=== PATIENT | female | born 1985 | race Hispanic/Latino ===

== ENCOUNTER → 2017-08-24 14:24 | Outpatient (CLI) | payer OTHER, SELFPAY ==
[2017-08-24 14:51] LABS: Add Manual Diff / Slide Review NO; Basophils Percent Auto 0.3 % (0-2); Eosinophils Percent Auto 0.5 % (2-4); Hematocrit 40.2 % (36-46); Hemoglobin 13.6 g/dL (12.0-16.0); Lymphocytes Percent Auto 19.5 % (25-40); Mean Corpuscular HGB Conc 33.8 % (30-36); Mean Corpuscular Hemoglobin 29.2 PG (26-34); Mean Corpuscular Volume 86.6 fL (80-100); Monocytes Percent Auto 4.9 % (3-14); Neutrophils Absolute Auto 6300 /uL (3000-5900); Neutrophils Percent Auto 74.8 % (50-75); Platelet Count 239 X10^3/uL (150-400); Red Blood Cell Count 4.64 X10^6/uL (4.0-5.2); White Blood Cell Count 8.4 X10^3/uL (4.5-11.0)
[2017-08-24 15:34] LABS: Alanine Aminotransferase 16 IU/L (9-52); Albumin 4.5 g/dL (3.5-5.0); Albumin Globulin Ratio 1.5 (1.0-2.8); Alkaline Phosphatase 57 U/L (38-126); Aspartate Aminotransferase 16 IU/L (14-36); Bilirubin Total 0.6 mg/dL (0.2-1.3); Blood Urea Nitrogen 16 mg/dL (7-17); Calcium 9.6 mg/dL (8.4-10.2); Carbon Dioxide 27 mmol/L (22-32); Chloride 100 mmol/L (98-107); Estimated Glomerular Filt Rate > 60.0 mL/min (>60); Glucose 93 mg/dL (70-100); HEMOLYSIS < 15 (0-50); Potassium 4.4 mmol/L (3.4-5.1); Sodium 138 mmol/L (137-145); Total Protein 7.5 g/dL (6.3-8.2)
[2017-08-24 15:48] LABS: Free T3, Triiodothyronine Free 2.91 pg/mL (2.77-5.27); Free T4, Direct Thyroxine 1.03 ng/dL (0.78-2.19)
== END ==
PROVIDERS: PCP Physician Assistant; Visit Provider Physician Assistant
DX: R53.83 Other fatigue (principal); R10.11 Right upper quadrant pain
CPT/HCPCS: 36415; 80053; 84439; 84443; 84481; 85025

== ENCOUNTER → 2017-09-08 13:45 | Outpatient (CLI) | payer OTHER, SELFPAY ==
--- NOTE | 2017-09-08 13:46 | DI.US.S_ITS ---
PROCEDURE: US ABDOMEN COMPLETE INDICATIONS: PAIN TECHNIQUE: Real-time scanning was performed of the abdominal and retroperitoneal organs, with image documentation. COMPARISON: None. FINDINGS: Liver: Liver is normal in size and homogeneous in echotexture. Gallbladder: No gallstones identified. Normal gallbladder wall. No pericholecystic fluid. Negative sonographic Barnett sign. Biliary ducts: Intrahepatic bile ducts are non-dilated. Extrahepatic bile duct caliber measures 3.5 mm. Normal is 6-7 mm or less in diameter, or 10 mm or less post-cholecystectomy. Pancreas: Visualized portions of the pancreas are sonographically normal. Spleen: Spleen is normal in size and homogeneous in echotexture. Kidneys: Kidneys are normal in size and echotexture. Right kidney measures 10.4 cm long; left kidney measures 12 cm long. No hydronephrosis or nephrolithiasis. No solid masses. Aorta: Visualized aorta is normal in caliber at less than 3 cm. Iliacs: Proximal common iliac arteries are normal in caliber at less than 2.5 cm. IVC: Intrahepatic inferior vena cava is patent. Miscellaneous: No free abdominal fluid. IMPRESSION: No source for right upper quadrant pain identified sonographically. Dictated by: Malvin Hanley [facility] Interpreted: Tres Becker MD on 09/08/2017 at 15:36 Approved by: Tres Becker M.D. on 09/08/2017 at 16:33
== END ==
PROVIDERS: PCP Physician Assistant; Visit Provider Physician Assistant
DX: R10.11 Right upper quadrant pain (principal)
CPT/HCPCS: 76700

== ENCOUNTER → 2019-06-10 13:44 | Outpatient (CLI) | payer OTHER, SELFPAY ==
[2019-06-10 20:19] LABS: Urine N gonorrhoeae NOT DETECTED
[2019-06-10 20:23] LABS: Urine Chlamydia NOT DETECTED
== END ==
PROVIDERS: PCP Physician Assistant; Visit Provider Specialist
DX: Z34.01 Encounter for supervision of normal first pregnancy, first trimester (principal)
CPT/HCPCS: 87491; 87591

== ENCOUNTER → 2019-06-10 14:06 | Outpatient (CLI) | payer OTHER, SELFPAY ==
[2019-06-10 14:36] LABS: Appearance Urine UA CLEAR; Bilirubin Urine UA NEGATIVE (NEGATIVE); Color Urine UA YELLOW; Glucose Urine UA NEGATIVE (Negative); Ketones Urine UA TRACE (NEGATIVE); Leukocyte Esterase Urine UA NEGATIVE (NEGATIVE); Nitrite Urine UA NEGATIVE (Negative); Occult Blood Urine UA NEGATIVE (Negative); Protein Urine UA NEGATIVE (Negative); Specific Gravity Urine UA <=1.005 (1.000-1.035); Urobilinogen Urine UA 0.2 E.U./dL (0.2)
[2019-06-10 14:37] LABS: pH Urine UA 5.5 (4.5-8.0)
[2019-06-10 14:51] LABS: Add Manual Diff / Slide Review NO; Basophils Absolute Auto 0 /uL (0-100); Basophils Percent Auto 0.2 % (0-2); Eosinophils Absolute Auto 0 /uL (0-450); Eosinophils Percent Auto 0.6 % (2-4); Hematocrit 40.5 % (36-46); Hemoglobin 13.6 g/dL (12.0-16.0); Lymphocytes Absolute Auto 1700 /uL (1100-4500); Lymphocytes Percent Auto 19.4 % (25-40); Mean Corpuscular HGB Conc 33.7 % (30-36); Mean Corpuscular Hemoglobin 29.4 PG (26-34); Mean Corpuscular Volume 87.3 fL (80-100); Monocytes Absolute Auto 500 /uL (0-900); Monocytes Percent Auto 6.1 % (3-14); Neutrophils Absolute Auto 6300 /uL (1500-7000); Neutrophils Percent Auto 73.7 % (50-75); Platelet Count 246 X10^3/uL (150-400); Red Blood Cell Count 4.64 X10^6/uL (4.0-5.2); Red Cell Distribution Width 12.8 % (11.6-14.8); White Blood Cell Count 8.6 X10^3/uL (4.5-11.0)
[2019-06-10 16:00] LABS: Hepatitis B Surface Antigen NEGATIVE s/c (NEGATIVE); Rubella Antibody IgG 12.1 IU/mL (>15)
[2019-06-10 16:12] LABS: HIV 1 & 2 Ab/Ag 4th Gen Combo NEGATIVE (NEGATIVE); Hep C Virus Ab w/Reflex Quant NEGATIVE s/c (NEGATIVE)
[2019-06-11 03:49] LABS: RPR Screen Non Reactive (Non Reactive)
[2019-06-11 07:28] LABS: Varicella IgG Antibody 2576 index (Immune >165)
== END ==
PROVIDERS: PCP Physician Assistant; Referring Provider Specialist; Visit Provider Specialist
DX: Z34.01 Encounter for supervision of normal first pregnancy, first trimester (principal)
CPT/HCPCS: 36415; 80055; 81003; 86787; 86803; 86850; 86900; 86901; 87086; 87389; 87491; 87591

== ENCOUNTER → 2019-10-21 09:57 | Outpatient (CLI) | payer OTHER, SELFPAY ==
[2019-10-21 12:03] LABS: Hematocrit 37.2 % (36-46); Hemoglobin 12.5 g/dL (12.0-16.0)
[2019-10-21 12:13] LABS: GTT (PREG) 1 Hour PP 50gm Dose 102 mg/dL (76-139)
== END ==
PROVIDERS: PCP Physician Assistant; Referring Provider Specialist; Visit Provider Specialist
DX: Z34.02 Encounter for supervision of normal first pregnancy, second trimester (principal); Z3A.26 26 weeks gestation of pregnancy
CPT/HCPCS: 36415; 82950; 85014; 85018

== ENCOUNTER → 2019-11-30 15:28 | Outpatient (CLI) | payer OTHER, SELFPAY ==
[2019-12-02 10:25] LABS: COVID19 Sendout Detected (Not Detect)
== END ==
PROVIDERS: PCP Specialist; Visit Provider Student in an Organized Health Care Education/Training Program
DX: Z11.59 Encounter for screening for other viral diseases (principal)
CPT/HCPCS: 87635

== ENCOUNTER → 2019-12-23 16:59 | Outpatient (CLI) | payer OTHER, SELFPAY ==
[2019-12-24 14:24] LABS: Strep Grp B PCR NEG for Grp B Strep
== END ==
PROVIDERS: Visit Provider Specialist
DX: Z34.03 Encounter for supervision of normal first pregnancy, third trimester (principal); Z3A.36 36 weeks gestation of pregnancy
CPT/HCPCS: 87653

== ENCOUNTER 2020-01-10 12:50 | Outpatient (CLI) | payer OTHER, SELFPAY ==
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
== END 2020-01-10 14:05 | disposition home or self-care (01) ==
LOC: LABOR 13:34 → OB 01-13 10:35
PROVIDERS: Referring Provider Specialist; Visit Provider Specialist
DX: Z34.03 Encounter for supervision of normal first pregnancy, third trimester (principal); Z3A.38 38 weeks gestation of pregnancy
CPT/HCPCS: 59025; G0378; G0379

== ENCOUNTER 2020-01-21 22:51 | Inpatient (IN) | payer OTHER, SELFPAY ==
[2020-01-22] MEDS: miSOPROStoL 25 MCG TABLET VAG ×2 (00:05→04:19)
[2020-01-22 00:06] LABS: Add Manual Diff / Slide Review NO; Basophils Absolute Auto 100 /uL (0-100); Basophils Percent Auto 0.7 % (0-2); Eosinophils Absolute Auto 100 /uL (0-450); Eosinophils Percent Auto 1.2 % (2-4); Hematocrit 36.6 % (36-46); Hemoglobin 12.2 g/dL (12.0-16.0); Lymphocytes Absolute Auto 1800 /uL (1100-4500); Lymphocytes Percent Auto 20.1 % (25-40); Mean Corpuscular HGB Conc 33.2 % (30-36); Mean Corpuscular Hemoglobin 28.8 PG (26-34); Mean Corpuscular Volume 86.8 fL (80-100); Monocytes Absolute Auto 900 /uL (0-900); Monocytes Percent Auto 9.6 % (3-14); Neutrophils Absolute Auto 6200 /uL (1500-7000); Neutrophils Percent Auto 68.4 % (50-75); Platelet Count 156 X10^3/uL (150-400); Red Blood Cell Count 4.22 X10^6/uL (4.0-5.2); Red Cell Distribution Width 13.8 % (11.6-14.8)
[2020-01-22 00:13] VITALS: BP 117/75
[2020-01-22] MEDS: ZOLPIDEM 5 MG TABLET PO (00:15)
[2020-01-22 00:28] LABS: COVID19 -Nasal RAPID Negative (Negative)
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
[2020-01-22] MEDS: OXYTOCIN PREMIX 30 UNIT/500 ML PLAST..BAG IV (08:25)
[2020-01-22] MEDS: LACTATED RINGERS 1,000 ML 100 ML IV ×3 (08:25→20:26)
[2020-01-22] MEDS: ONDANSETRON 4 MG/2 ML INJ IV (20:24)
[2020-01-23] VITALS (7 sets, daily range): BP systolic 92–106; BP diastolic 48–68; PULSE 68–89; RESP 8–13; TEMP 36.8; O2SAT 95–99
[2020-01-23] MEDS: FENT 2MCG/ML BUPIV 0.125% EPI 200 MCG/100 ML PLAST..BAG 12 MCG EPIDURAL (00:08)
[2020-01-23] MEDS: ONDANSETRON 4 MG/2 ML INJ IV ×3 (01:36→09:47)
--- NOTE | 2020-01-23 02:20 | PM.OBPNLAB ---
Date/Time Date Patient Seen: 01/23/20 Time Patient Seen: 02:21 Pain Control Pain control: epidural (Poor pain control) Pelvic Exam Dilation (cm): 7 Effacement (%): 80 station: -2 Amniotic membrane status: Ruptured Contractions Contractions on admission: regular Monitor mode: External Contraction frequency (min): 3 Contraction duration (min): 1 Contraction pattern: Regular Contraction intensity: Strong/Firm Status status: Category l Heart Rate Baseline: 140 Monitor Accelerations: Present Monitor Decelerations: Absent Monitor Variability: Moderate Assessment and Plan Plan: Comments: Patient with minimal cervical change and no descent despite what appeared to be adequate contractions. Patient unable to get good pain control with replacement of epidural. Will proceed with for 1st stage arrest
[2020-01-23] MEDS: CITRIC ACID/SODIUM CITRATE 15 ML SOLUTION 30 ML PO (02:28)
[2020-01-23] MEDS: fentaNYL 100 MCG/2 ML INJ IV (02:32)
--- NOTE | 2020-01-23 03:33 | SUR.OPER ---
Supine on Padded OR bed, head on pillow, safety belt at thigh, arms secured on padded arm boards at <90 degrees abduction. Bump under right buttock. Legs uncrossed with pillow under knees, gel pad to heels, tape over blanket to lower legs.
--- NOTE | 2020-01-23 03:38 | SUR.OPER ---
FHT 134 LIAVE MALE BORN AT 0324
--- NOTE | 2020-01-23 03:58 | PM.PREOP ---
Pre-operative Note COVID-19 COVID-19 status: Negative Result date/Date tested (Pos, Neg/Pending): 01/21/20 Interval Note History & Physical reviewed/Exam performed by Physician: Yes Changes to H&P: Yes H&P completed within 30 days and has changed as indicated here:: 1st stage arrest
--- NOTE | 2020-01-23 03:58 | PM.OP.1 ---
Operative Date/Time/Diagnoses Date of procedure: 01/23/20 Time of procedure: 03:58 Pre-op diagnosis: 40 week gestation, 1st stage arrest Post-op diagnosis: same Procedure & Clinicians Procedure: Primary low-transverse section Same procedure as scheduled: Yes Indications: 1st stage arrest in labor Surgeon: Debra Wagner Liquid Sugar Melter: Perez Sheppard Click Yes if Unassisted: Yes Anesthesia Type: Spinal Operative Notes Findings: Normal tubes, ovaries, uterus, viable male weighing 9 lb 9 oz with Apgars of 9 and 9 Closure Type: primary Specimen(s): none sent Applied: catheter (Hernandez) Estimated Blood Loss (mL): 500 Blood products transfused: none Procedure in detail: The patient was brought to the operating room where she underwent a spinal for anesthesia. She was placed in a supine position with a left lateral tilt. A Hrenandez catheter was in place. Pulsatile stockings were placed and functional throughout the case. 2 g of Ancef were given IV prior to the incision. Warming was in place. The patient was prepped and draped in usual sterile fashion. A low transverse incision was made with a scalpel and the incision was carried down to the fascial layer which was incised transversely with scissors. The midline attachments are superiorly and inferiorly. Some bleeding was controlled Bovie. The rectus muscles were in the midline and the peritoneal incision was made with no damage to internal structures. The peritoneum was incised and superiorly and inferiorly. Bladder blade was placed and a bladder flap was developed and the bladder held away from the lower uterine segment. An incision was made in the uterus with the scalpel and the incision was extended with stretching. The head was elevated out of the abdomen and with fundal pressure the baby was delivered. The was bulb suctioned for clear fluid and handed off to the warmer. Cord blood was collected. The placenta delivered spontaneously with traction. The uterus was cleaned with clean laps. The uterine incision was closed in 2 layers of 0 chromic suture the first a running locking layer the second an imbricating layer. The bladder peritoneum was repaired with 2-0 Vicryl suture. The gutters were cleaned of any remaining fluids and ovaries and tubes were observed to be normal. Adequate hemostasis was noted. The perineum was closed with 2-0 Vicryl suture. The fascia layer was closed with 0 Vicryl suture with 2 stitches. The incision was irrigated and adequate hemostasis noted. The incision was closed with interrupted 3-0 Vicryl sutures and then a subcuticular stitch of 4-0 Vicryl suture. Steri-Strips were placed. The uterus was massaged to remove any clots. The patient went to recovery room in good condition. Counts of instruments and sponges were correct. Dr. Sheppard was present throughout the case to assist with retraction, fundal pressure to deliver the infant, and suturing half the fascia. Complications: none Post-operative Condition: stable Disposition: other ( Center) Plan for aftercare: Routine post section
--- NOTE | 2020-01-23 04:24 | SUR.PHASEI ---
0358 arrived to PACU awake and oriented, denied pain/nausea. See worksheets. Did patient education regarding fundus, bleeding, hormones 0418 sips of water given approx 0410, c/o nausea. Quease-ease and zofran given; 0425 Nausea level improving.
--- NOTE | 2020-01-23 04:46 | SUR.PHASEI ---
0436 transferred to center. Nausea improved, but not resolved. No emesis or wretching. Unable to view BC orders as nurse transferred them. To BC 4, bed remains elevated per request of the RN. SCD's on, ccall light given, dressing, fundus, and pad checked by BC RN. Dad and baby in the room. No further questions from staff or patient/family.
[2020-01-23] MEDS: LACTATED RINGERS 1,000 ML 100 ML IV ×2 (05:06→14:29)
[2020-01-23] MEDS: METOCLOPRAMIDE 10 MG/2 ML INJ IV (06:30)
[2020-01-23] MEDS: KETOROLAC 30 MG/ML VIAL IV ×3 (09:41→22:03)
[2020-01-23] MEDS: diphenhydrAMINE 25 MG TABLET PO (22:11)
[2020-01-24] MEDS: MAG HYDROX/ALUM/SIMETH 30 ML UDC PO (00:31)
[2020-01-24] MEDS: OXYCODONE IR 5 MG TABLET PO ×4 (03:28→17:58)
[2020-01-24] MEDS: IBUPROFEN 600 MG TABLET PO ×3 (03:28→16:59)
[2020-01-24 06:53] LABS: Add Manual Diff / Slide Review NO; Basophils Absolute Auto 100 /uL (0-100); Basophils Percent Auto 0.4 % (0-2); Eosinophils Absolute Auto 100 /uL (0-450); Eosinophils Percent Auto 0.5 % (2-4); Hematocrit 35.7 % (36-46); Hemoglobin 11.6 g/dL (12.0-16.0); Lymphocytes Absolute Auto 1600 /uL (1100-4500); Lymphocytes Percent Auto 10.3 % (25-40); Mean Corpuscular HGB Conc 32.6 % (30-36); Mean Corpuscular Hemoglobin 28.5 PG (26-34); Mean Corpuscular Volume 87.4 fL (80-100); Monocytes Absolute Auto 1200 /uL (0-900); Monocytes Percent Auto 7.4 % (3-14); Neutrophils Absolute Auto 12700 /uL (1500-7000); Neutrophils Percent Auto 81.4 % (50-75); Platelet Count 178 X10^3/uL (150-400); Red Blood Cell Count 4.08 X10^6/uL (4.0-5.2); White Blood Cell Count 15.6 X10^3/uL (4.5-11.0)
[2020-01-24] MEDS: DOCUSATE 250 MG CAPSULE PO (08:30)
--- NOTE | 2020-01-24 17:38 | P.DS_ITS ---
Discharge Providers Provider Date of admission: 01/21/20 22:51 Discharge Date: 01/24/20 Primary care physician: Doctor Rusty MD Consults: 01/21/20 23:08 Consult to Anesthesiology Urgent Comment: Consulting Provider: Anesthesiologist Reason for consultation: Epidural Has provider been notified: No 01/23/20 04:35 Consult to Turbine Inspector Routine Comment: Discharge provider: Debra Wagner MD Summary Hospital Course Date Patient Seen: 01/24/20 Time Patient Seen: 17:39 Procedures: Prostin followed by Pitocin induction, epidural catheter, primary lo w-transverse section Hospital Course: Patient was admitted for induction for LGA infant. Patient had for stage arrest resulting in primary section due to OP position 9 lb 10 oz baby. The patient is doing well. She is urinating and ambulating well. She is passing gas. Her pain is under control. Mild bleeding. Peripartum Data Infant Delivery Method: Section (1st stage arrest) Procedures: Prostin followed by Pitocin induction, epidural catheter, primary low-transverse section complications: none 1: Gender: Male Disposition of : home Discharge Diagnosis (1) Delivery by section: Status: Acute Status at Discharge Cognitive/behavioral status at discharge: oriented Functional status at discharge: independent ambulation Overall status at discharge: patient is back to baseline Time Spent with Patient Time attestation: Total time spent providing and/or coordinating discharge services: Time spent: Less than 30 minutes Objective Labs Result Diagrams: 01/24/20 06:45 Labs: Laboratory Results - last 24 hr 01/24/20 06:45 WBC 15.6 H RBC 4.08 Hgb 11.6 L Hct 35.7 L MCV 87.4 MCH 28.5 MCHC 32.6 RDW 14.0 Plt Count 178 Neut % (Auto) 81.4 H Lymph % (Auto) 10.3 L [place] % (Auto) 7.4 Eos % (Auto) 0.5 L Baso % (Auto) 0.4 Neut # (Auto) 10065 H Lymph # (Auto) 1600 [place] # (Auto) 1200 H Eos # (Auto) 100 Baso # (Auto) 100 Exam Vital Signs (past 8 hours): Oxygen Delivery Method Room Air Narrative Exam Narrative: Abdomen is soft, nontender. Uterus is firm, at U, appropriately tender. Dressing is clean, dry, intact. Mild lochia. Extremities without edema and nontender. Patient is Rh positive, rubella nonimmune, she received Tdap in the 3rd trimester. Discharge Plan Discharge Plan Patient Disposition: Home Discharge orders & Medications Prescriptions: New docusate sodium 250 mg Capsule 250 mg PO DAILY Qty: 20 RF: 0 ibuprofen 600 mg Tablet 600 mg PO Q6HR PRN (Reason: Fever/Mild Pain (1-3)) Qty: 30 RF: 0 oxycodone-acetaminophen 5-325 mg tablet 1 tab PO Q4-6H PRN (Reason: pain) Qty: 30 RF: 0 Continued prenat.vits,harrison,[id number] Tablet 1 tab PO DAILY RF: 0 Follow up/Referrals: Debra Wagner MD [Physician] - (please follow up w/ Dr. Wagner for dressing removal on @ 9:45am 6week appt: Feb 19 @ 10am w/ a 9:45am check in) Diet/Activity/Treatments Diet: Regular Activity: Nothing in vagina or lifting over 20 lb for 6 weeks Skin/Wound/Dressing Care Report to your healthcare provider any signs of infection, such as:: chills, fever and increased pain Dressing: Leave dressing in place until postop appointment Visit Report/Discharge Packet Instructions: DI for Stand Alone Forms: Discharge: Care Discharge Data Primary Care Provider: Miscellaneous,Doctor
[2020-01-24 18:23] VITALS: BP 109/74; PULSE 91; RESP 16; TEMP 36.7
[2020-01-24] MEDS: MEASLES,MUMPS,RUBELLA VACC/PF 0.5 ML VIAL SUBCUT (19:29)
== END 2020-01-24 20:25 | disposition home or self-care (01) | DRG 788 ==
PROVIDERS: Admitting Provider Specialist; Referring Provider Specialist; Visit Provider Specialist
PROC: 10D00Z1 Extraction of Products of Conception, Low, Open Approach (ICD-10-PCS; CPT 59514; principal; 2020-01-23 03:00)
DX: O75.81 Maternal exhaustion complicating labor and delivery (principal); Z3A.40 40 weeks gestation of pregnancy; Z37.0 Single live birth; O62.1 Secondary uterine inertia; O32.8XX0 Maternal care for other malpresentation of fetus, not applicable or unspecified; Z01.812 Encounter for preprocedural laboratory examination; Z20.828 Contact with and (suspected) exposure to other viral communicable diseases
CPT/HCPCS: 01967; 01968; 36415; 59050; 59200; 59510; 85025; 86850; 86900; 86901; 87635; G0379; J1885; J2274; J2405; J2590; J2765; J3010

== ENCOUNTER → 2021-07-31 11:04 | Outpatient (CLI) | payer OTHER, SELFPAY ==
[2021-07-31 11:40] LABS: Add Manual Diff / Slide Review NO; Basophils Absolute Auto 0 /uL (0-100); Basophils Percent Auto 0.4 % (0-2); Eosinophils Absolute Auto 200 /uL (0-450); Eosinophils Percent Auto 2.9 % (2-4); Hematocrit 38.7 % (36-46); Hemoglobin 13.2 g/dL (12.0-16.0); Lymphocytes Absolute Auto 1600 /uL (1100-4500); Lymphocytes Percent Auto 22.8 % (25-40); Mean Corpuscular HGB Conc 34.1 % (30-36); Mean Corpuscular Hemoglobin 28.7 PG (26-34); Mean Corpuscular Volume 84.1 fL (80-100); Monocytes Absolute Auto 500 /uL (0-900); Monocytes Percent Auto 7.5 % (3-14); Neutrophils Absolute Auto 4700 /uL (1500-7000); Neutrophils Percent Auto 66.4 % (50-75); Platelet Count 256 X10^3/uL (150-400); Red Cell Distribution Width 13.6 % (11.6-14.8); White Blood Cell Count 7.1 X10^3/uL (4.5-11.0)
[2021-07-31 11:44] LABS: Appearance Urine UA CLOUDY; Bilirubin Urine UA NEGATIVE (NEGATIVE); Color Urine UA YELLOW; Glucose Urine UA NEGATIVE (Negative); Ketones Urine UA TRACE (NEGATIVE); Leukocyte Esterase Urine UA TRACE (NEGATIVE); Nitrite Urine UA NEGATIVE (Negative); Occult Blood Urine UA 3+ (Negative); Protein Urine UA 1+ (Negative); Specific Gravity Urine UA 1.015 (1.000-1.035); Urobilinogen Urine UA 0.2 E.U./dL (0.2)
[2021-07-31 12:02] LABS: Bacteria Urine Occasional (0-1); RBC Urine 30-100/HPF (0-5/HPF); Squamous Epithelial Cell Urine None Seen (0-5/HPF); WBC Urine 1-5/HPF (0-5/HPF)
[2021-07-31 12:32] LABS: HCG Quantitative /Beta subunit 434.7 mIU/mL
[2021-08-01 07:39] LABS: RPR Screen Non Reactive (Non Reactive); Varicella IgG Antibody 1800 index (Immune >165)
[2021-08-02 04:18] LABS: HIV 1 & 2 Ab/Ag 4th Gen Combo NEGATIVE (NEGATIVE); Hep C Virus Ab w/Reflex Quant NEGATIVE s/c (NEGATIVE); Hepatitis B Surface Antigen NEGATIVE s/c (NEGATIVE); Rubella Antibody IgG 78.8 IU/mL (>15)
== END ==
PROVIDERS: Referring Provider Obstetrics & Gynecology; Visit Provider Obstetrics & Gynecology
DX: O20.9 Hemorrhage in early pregnancy, unspecified (principal)
CPT/HCPCS: 36415; 80055; 81003; 81015; 84702; 86787; 86803; 86850; 86900; 86901; 87077; 87086; 87186; 87389

== ENCOUNTER → 2021-08-02 09:04 | Outpatient (CLI) | payer OTHER, SELFPAY ==
[2021-08-02 10:19] LABS: HCG Quantitative /Beta subunit 70.4 mIU/mL
== END ==
PROVIDERS: Referring Provider Obstetrics & Gynecology; Visit Provider Obstetrics & Gynecology
DX: O20.9 Hemorrhage in early pregnancy, unspecified (principal)
CPT/HCPCS: 36415; 84702

== ENCOUNTER → 2022-01-03 08:58 | Outpatient (CLI) | payer OTHER, SELFPAY ==
[2022-01-03 10:32] LABS: HCG Quantitative /Beta subunit 10409 mIU/mL
== END ==
PROVIDERS: Referring Provider Obstetrics & Gynecology; Visit Provider Obstetrics & Gynecology
DX: N91.2 Amenorrhea, unspecified (principal)
CPT/HCPCS: 36415; 84702

== ENCOUNTER → 2022-01-05 09:05 | Outpatient (CLI) | payer OTHER, SELFPAY ==
[2022-01-05 14:09] LABS: HCG Quantitative /Beta subunit 15524 mIU/mL
== END ==
PROVIDERS: Referring Provider Obstetrics & Gynecology; Visit Provider Obstetrics & Gynecology
DX: N91.2 Amenorrhea, unspecified (principal)
CPT/HCPCS: 36415; 84702

== ENCOUNTER → 2022-02-09 14:35 | Outpatient (CLI) | payer OTHER, SELFPAY ==
[2022-02-09 20:24] LABS: Urine N gonorrhoeae NOT DETECTED
[2022-02-09 20:30] LABS: Urine Chlamydia NOT DETECTED
== END ==
PROVIDERS: Visit Provider Obstetrics & Gynecology
DX: Z34.81 Encounter for supervision of other normal pregnancy, first trimester (principal); Z3A.10 10 weeks gestation of pregnancy
CPT/HCPCS: 87491; 87591

== ENCOUNTER → 2022-02-09 15:20 | Outpatient (CLI) | payer OTHER, SELFPAY ==
[2022-02-09 16:33] LABS: Add Manual Diff / Slide Review NO; Basophils Absolute Auto 0 /uL (0-100); Basophils Percent Auto 0.3 % (0-2); Eosinophils Absolute Auto 100 /uL (0-450); Eosinophils Percent Auto 1.8 % (2-4); Hematocrit 38.2 % (36-46); Hemoglobin 12.7 g/dL (12.0-16.0); Lymphocytes Absolute Auto 1700 /uL (1100-4500); Lymphocytes Percent Auto 23.8 % (25-40); Mean Corpuscular HGB Conc 33.3 % (30-36); Mean Corpuscular Hemoglobin 28.4 PG (26-34); Mean Corpuscular Volume 85.3 fL (80-100); Monocytes Absolute Auto 500 /uL (0-900); Monocytes Percent Auto 6.5 % (3-14); Neutrophils Absolute Auto 4900 /uL (1500-7000); Neutrophils Percent Auto 67.6 % (50-75); Platelet Count 220 X10^3/uL (150-400); Red Blood Cell Count 4.48 X10^6/uL (4.0-5.2); Red Cell Distribution Width 12.7 % (11.6-14.8); White Blood Cell Count 7.2 X10^3/uL (4.5-11.0)
== END ==
PROVIDERS: Referring Provider Obstetrics & Gynecology; Visit Provider Obstetrics & Gynecology
DX: Z34.81 Encounter for supervision of other normal pregnancy, first trimester (principal); Z3A.10 10 weeks gestation of pregnancy
CPT/HCPCS: 36415; 85025; 86850; 86900; 86901; 87491; 87591

== ENCOUNTER → 2022-03-21 09:38 | Outpatient (CLI) | payer OTHER, SELFPAY ==
[2022-03-24 20:19] LABS: AFP Value 25.2 ng/mL (.); Gest Age on Col Date 16.4 weeks (.); Insulin Dep Diabetes No (.); OSBR Risk 1IN 10000 (.); Results Report (.); Test Results *Screen Negative* (.)
== END ==
PROVIDERS: Referring Provider Obstetrics & Gynecology; Visit Provider Obstetrics & Gynecology
DX: Z34.92 Encounter for supervision of normal pregnancy, unspecified, second trimester (principal)
CPT/HCPCS: 36415; 82105

== ENCOUNTER → 2022-04-15 08:46 | Outpatient (CLI) | payer OTHER, SELFPAY ==
--- NOTE | 2022-04-15 08:47 | DI.US.S_ITS ---
PROCEDURE: US OB >= 14 WEEKS FETUS INDICATIONS: ANATOMY SCAN OUTSIDE/PRIOR DATING DATA: Last menstrual period (LMP): 11/26/2021 LMP-based estimated date of delivery (SIDDHARTH): 09/02/2022. TECHNIQUE: Real-time scanning was performed of the fetus, with image documentation and biometric measurements. Endovaginal scanning: Not performed COMPARISON: None. FINDINGS: General: A single living intrauterine gestation is present. Presentation: Vertex. Placenta: Placental position is anterior , without previa. Amniotic fluid index: 16.2 cm, normal range is 5-24 cm. Single deepest vertical pocket is 4.5 cm. heart rate: 155 beats per minute. Maternal cervical canal: 4.4 cm long. Normal lower limit is 2.5 cm. biometrics: Biparietal diameter: 4.7 cm Head circumference: 17.5 cm Abdominal circumference: 14.8 cm Femur length: 3.4 cm Clinically estimated gestational age: 20 weeks 0 days. Composite gestational age from present scan: 20 weeks 2 days. Estimated weight and percentile: 347 g, 65th percentile Anatomic survey: Neuro: Ventricles are non-dilated at less than 10 mm. Cisterna magna is normal at 3-11 mm. Cerebellum is normal in size and morphology. Nuchal skin fold: Normal at less than 6 mm between 14-21 weeks gestational age. Face: Nose and lips, facial profile are normal. Spine: No evidence for spina bifida. Heart: 4-chambered heart is present, with normal ventricular outflow tracts. Diaphragm: Diaphragm is intact. Stomach: Left-sided stomach is present. Kidneys: No hydronephrosis. Normal is less than 5 mm in 2nd trimester, less than 7 mm in 3rd trimester. Cord: 3-vessel cord has orthotopic insertion. Bladder: Normal in size. Extremities: All 4 extremities identified. IMPRESSION: Single living intrauterine gestation. Size concordant with dates. Normal BONNY and normal anatomic survey. Dictated by: Rich Medina M.D. on 04/15/2022 at 14:51 Approved by: Rich Medina M.D. on 04/15/2022 at 14:52
== END ==
PROVIDERS: Referring Provider Obstetrics & Gynecology; Visit Provider Obstetrics & Gynecology
DX: Z34.92 Encounter for supervision of normal pregnancy, unspecified, second trimester (principal); Z3A.20 20 weeks gestation of pregnancy
CPT/HCPCS: 76811

== ENCOUNTER → 2022-05-27 08:59 | Outpatient (CLI) | payer OTHER, SELFPAY ==
[2022-05-27 11:28] LABS: Hematocrit 33.8 % (36-46); Hemoglobin 11.6 g/dL (12.0-16.0)
[2022-05-27 12:02] LABS: GTT (PREG) 1 Hour PP 50gm Dose 130 mg/dL (76-139)
== END ==
PROVIDERS: Referring Provider Obstetrics & Gynecology; Visit Provider Obstetrics & Gynecology
DX: Z34.82 Encounter for supervision of other normal pregnancy, second trimester (principal); Z3A.26 26 weeks gestation of pregnancy
CPT/HCPCS: 36415; 82950; 85014; 85018

== ENCOUNTER → 2022-08-05 09:45 | Outpatient (CLI) | payer OTHER, SELFPAY | PROVIDERS: Visit Provider Physician Assistant | DX: J02.9 Acute pharyngitis, unspecified (principal) | CPT/HCPCS: 87070 ==

== ENCOUNTER → 2022-08-08 16:27 | Outpatient (CLI) | payer OTHER, SELFPAY ==
[2022-08-09 14:03] LABS: Strep Grp B PCR NEG for Grp B Strep
== END ==
PROVIDERS: Visit Provider Obstetrics & Gynecology
DX: Z34.83 Encounter for supervision of other normal pregnancy, third trimester (principal); Z3A.36 36 weeks gestation of pregnancy
CPT/HCPCS: 87653

== ENCOUNTER 2022-08-22 09:28 | Outpatient (CLI) | payer OTHER, SELFPAY ==
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
== END 2022-08-22 11:15 | disposition home or self-care (01) ==
LOC: LABOR 09:44 → OB 08-25 07:40
PROVIDERS: Referring Provider Obstetrics & Gynecology; Visit Provider Obstetrics & Gynecology
DX: O47.1 False labor at or after 37 completed weeks of gestation (principal); Z3A.38 38 weeks gestation of pregnancy
CPT/HCPCS: 59025; 59050; G0378; G0379

== ENCOUNTER 2022-08-29 05:50 | Inpatient (IN) | payer OTHER, SELFPAY ==
[2022-08-29 06:36] VITALS: BP 120/67
[2022-08-29] MEDS: LACTATED RINGERS 1,000 ML 999 ML IV (06:40)
[2022-08-29 06:54] LABS: Add Manual Diff / Slide Review NO; Basophils Absolute Auto 0 /uL (0-100); Basophils Percent Auto 0.5 % (0-2); Eosinophils Absolute Auto 100 /uL (0-450); Eosinophils Percent Auto 1.4 % (2-4); Hematocrit 35.7 % (36-46); Lymphocytes Absolute Auto 1700 /uL (1100-4500); Lymphocytes Percent Auto 19.1 % (25-40); Mean Corpuscular HGB Conc 33.5 % (30-36); Mean Corpuscular Hemoglobin 28.2 PG (26-34); Mean Corpuscular Volume 84.1 fL (80-100); Monocytes Absolute Auto 700 /uL (0-900); Monocytes Percent Auto 7.8 % (3-14); Neutrophils Absolute Auto 6400 /uL (1500-7000); Neutrophils Percent Auto 71.2 % (50-75); Platelet Count 145 X10^3/uL (150-400); Red Blood Cell Count 4.25 X10^6/uL (4.0-5.2); Red Cell Distribution Width 14.2 % (11.6-14.8)
[2022-08-29] MEDS: CITRIC ACID/SODIUM CITRATE 15 ML SOLUTION 30 ML PO (07:32)
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
[2022-08-29] MEDS: CEFAZOLIN 2 GM/100 ML PREMIX 100 ML IV (07:46)
[2022-08-29] MEDS: ACETAMINOPHEN IV 1,000 MG/100 ML VIAL 400 MG IV (08:07)
--- NOTE | 2022-08-29 08:35 | SUR.OPER ---
CORD BLOOD TUBES X2 & PLACENTA SENT WITH OB RNs. Miguelina Frietas.
--- NOTE | 2022-08-29 08:36 | SUR.OPER ---
BABY GIRL DELIVERED @ 0819. APGARS 8 & 8. Miguelina Freitas.
[2022-08-29 09:08] VITALS: BP 110/76; PULSE 85; RESP 12; TEMP 36.3; O2SAT 100
[2022-08-29 09:13] VITALS: BP 102/59; PULSE 88; RESP 16; O2SAT 100
[2022-08-29 09:18] VITALS: BP 112/59; PULSE 81; RESP 18; TEMP 36.2; O2SAT 97
[2022-08-29 09:23] VITALS: BP 110/74; PULSE 72; RESP 18; O2SAT 100
--- NOTE | 2022-08-29 09:25 | PM.PREOP ---
Pre-operative Note COVID-19 Criteria for continued procedure: Non-surgical alternatives not available or appropriate per current SOC Interval Note History & Physical reviewed/Exam performed by Physician: Yes Changes to H&P: No H&P completed within 30 days and has changed as indicated here:: 08/29/22
--- NOTE | 2022-08-29 09:47 | PM.OBCS.1 ---
Operative Date/Time/Diagnoses Date of procedure: 08/29/22 Time of procedure: 09:47 Pre-op diagnosis: 39+ 3 weeks' gestation Previous section Post-op diagnosis: same Procedure & Clinicians Procedure: Repeat low-transverse section Same procedure as scheduled: Yes Indications: 39+ 3 weeks' gestation Previous section Surgeon: Sarah Nielsen Click Yes if Unassisted: No Bumper Operator: Nicki Pena Reason for Bumper Operator: The assistant center manager was necessary to retract upon entry into the abdomen and uterus. She assisted with fundal pressure for delivery of the infant. She assisted with closure with retraction and clipping of suture. She closed the contralateral fascia. Anesthesia Type: Spinal (With Duramorph) Operative Notes Findings: Live female infant in the direct occiput posterior presentation Normal uterus, tubes, and ovaries Closure Type: primary Specimen(s): cord blood and placenta Intraoperative meds administered: Duramorph, Ketorolac and Pitocin Applied: Catheter (To continuous drainage) Estimated Blood Loss (mL): 500 Blood products transfused: none Procedure in detail: The patient was taken to the operating room where she was placed in the seated position. Spinal anesthesia with Duramorph was administered. The patient was then placed in the dorsal supine position with a leftward tilt. She was prepped and draped in the usual sterile fashion. A timeout was performed. After spinal analgesia was found to be adequate, a Pfannenstiel skin incision was made through the previous incision and carried through to the underlying layer fascia. The fascia was nicked in the midline, and the incision extended bilaterally with the Marrero scissors. The superior aspect of the fascial incision was grasped with a [place] clamps, elevated, and the underlying rectus muscles dissected off sharply and bluntly. Attention was then turned to the inferior aspect of this incision which in a similar fashion was grasped with a Roman clamps, elevated, and the underlying rectus muscles dissected off sharply and bluntly. The rectus muscles were in the midline. The peritoneum was identified, grasped between 2 hemostats, and entered sharply with the Metzenbaum scissors. This incision was extended superiorly and inferiorly with good visualization of the bladder. The bladder blade was inserted. The vesicouterine peritoneum was identified, grasped with the pickup, and entered sharply with the Metzenbaum scissors. This incision was extended bilaterally, and the bladder flap was created digitally. The bladder blade was reinserted. The lower uterine segment was incised in a transverse fashion with the scalpel. Upon entering the amniotic sac there was moderate amount of clear amniotic fluid. The 's head was delivered without difficulty. The nose and mouth were suctioned with bulb suction. The remainder of the body delivered without difficulty. The cord was double clamped and cut after 1 minute. The was handed off to waiting RN and RT. The placenta was delivered by expression. The uterus was cleared of all clots and debris. The uterine incision was repaired with #1 chromic in a running interlocking fashion, and a second layer the same suture was used for an imbricating layer. Hemostasis was achieved. The tubes and ovaries were examined and were found to be normal. The gutters were cleared of all clots and debris. The bladder flap was reapproximated using 2-0 Vicryl in a running fashion. The parietal peritoneum was closed using 2-0 Vicryl in a running fashion. The fascia was reapproximated using 0 Vicryl in a running fashion. The subcutaneous layer was copiously irrigated with warm normal saline. 5 simple interrupted sutures of 3-0 Vicryl were placed to reapproximate the subcutaneous layer. The skin was closed with 4-0 Monocryl in a subcuticular fashion. Steri-Strips were placed. An Aquacel dressing was placed. The uterus was expressed of a small amount of old blood. Sponge, lap, and instrument counts were correct x-2. The patient tolerated the procedure well, and was taken to PACU in stable condition. Complications: none [place] Baby 1: Infant Gender: Female Presentation: vertex Position: Occiput Posterior Placental Delivery Description: Expressed Cord Vessel Description: 3 Vessels and Clamped/Cut (After 1 minute) score (1 min): 8 score (5 min): 8 weight: 8 lb 8 oz Post-operative Condition: stable Disposition: PACU Aftercare: routine postop
[2022-08-29] MEDS: ONDANSETRON 4 MG/2 ML INJ IV (10:14)
[2022-08-29] MEDS: OXYCODONE IR 5 MG TABLET PO (10:23)
[2022-08-29] MEDS: diphenhydrAMINE 50 MG/ML VIAL 25 MG IV ×3 (13:31→23:45)
[2022-08-29] MEDS: OXYCODONE IR 5 MG TABLET 10 MG PO ×2 (14:33→19:27)
[2022-08-29] MEDS: KETOROLAC 30 MG/ML VIAL IV ×2 (16:14→22:06)
[2022-08-29] MEDS: ACETAMINOPHEN 325 MG TABLET 650 MG PO ×2 (16:14→22:05)
[2022-08-30] MEDS: KETOROLAC 30 MG/ML VIAL IV (03:29)
[2022-08-30] MEDS: ACETAMINOPHEN 325 MG TABLET 650 MG PO ×4 (03:29→20:51)
[2022-08-30] MEDS: diphenhydrAMINE 50 MG/ML VIAL 25 MG IV (03:31)
[2022-08-30 06:30] LABS: Hematocrit 31.3 % (36-46); Hemoglobin 10.7 g/dL (12.0-16.0)
[2022-08-30] MEDS: IBUPROFEN 600 MG TABLET PO ×3 (09:08→20:51)
[2022-08-30] MEDS: PRENATAL VIT,CALC/IRON/FOLIC 1 TABLET 1 TAB PO (09:09)
[2022-08-30] MEDS: DOCUSATE 100 MG CAPSULE PO (09:09)
[2022-08-30] MEDS: OXYCODONE IR 5 MG TABLET PO ×2 (13:31→17:45)
[2022-08-30 18:17] VITALS: BP 110/70; PULSE 88; RESP 14; TEMP 36.6
--- NOTE | 2022-08-30 18:30 | PM.OBDS.1 ---
Discharge Providers Provider Date of admission: 08/29/22 05:50 Discharge Date: 08/30/22 Consults: 08/29/22 10:04 Consult to Associate Vice President Routine Comment: Discharge provider: Sarah Nielsen MD Summary Hospital Course Date Patient Seen: 08/30/22 Time Patient Seen: 18:30 Diagnoses: 39-,3/7 weeks gestation Previous section Repeat low-transverse section Hospital Course: Patient is a 37-year-old 3 para 2 who presented on August 29, 2022 for a scheduled repeat low-transverse section at 39-,3/7 weeks gestation. She underwent this procedure with spinal anesthesia without complication. Her postoperative course was unremarkable. On postop day # 1 her Hernandez catheter was removed. She was able to void spontaneously. Her pain is well controlled. is going well. Bleeding is tapering. She is ambulating independently. Time Spent with Patient Time attestation: Total time spent providing and/or coordinating discharge services: Objective Labs 08/30/22 06:13 Labs: Laboratory Results - last 24 hr 08/30/22 06:13 Hgb 10.7 L Hct 31.3 L Exam Vital Signs (past 8 hours): - 08/30/22 18:17 Temperature 97.8 F Pulse Rate 88 Respiratory Rate 14 Blood Pressure 110/70 Oxygen Delivery Method Room Air Narrative Exam Narrative: Generally: Patient is sitting up in bed, holding infant, no acute distress Lungs: Clear to auscultation bilaterally Cardiovascular: Regular rate and rhythm Fundus: Firm at U -1 Incision: Clean dry and intact with Aquacel dressing Extremities: Trace edema, negative Homans Discharge Plan Discharge Plan Patient Disposition: Home Provider Discharge Comment: Call with fever, chills, redness or drainage around the incision, or bleeding vaginally more than a pad in an hour Ibuprofen 600 mg every 6 hours as needed Tylenol 650 mg every 6 hours as needed Stool softeners until bowel returns to normal Push oral fluids Discharge orders & Medications Prescriptions: New oxycodone 5 mg tablet 5 mg PO Q4H PRN (Reason: pain) Qty: 20 0RF Continued prenat.vits,harrison,[id number]-[id number] Tablet 1 tab PO DAILY liver extract Tablet 4 tab PO DAILY Follow up/Referrals: Sarah Nielsen MD [Physician] - (Please follow up with Dr Nielsen for an incision check on 09/06/22 at 11am and a 6 week follow up on 10/11/22 at 1:00pm ) Diet/Activity/Treatments Diet: Regular Activity: No heavy lifting, nothing more than the baby for the first 2 weeks Skin/Wound/Dressing Care Report to your healthcare provider any signs of infection, such as:: chills, fever, increased pain, unusual drainage and unusual redness Dressing: Leave dressing in place until 1 week postop visit Visit Report/Discharge Packet Instructions: DI for , DI for Prescription Opioid Use Stand Alone Forms: Patient Portal/API, Stroke Signs & Symptoms
== END 2022-08-30 21:15 | disposition home or self-care (01) | DRG 788 ==
PROVIDERS: Admitting Provider Obstetrics & Gynecology; Referring Provider Obstetrics & Gynecology; Visit Provider Obstetrics & Gynecology
PROC: 10D00Z1 Extraction of Products of Conception, Low, Open Approach (ICD-10-PCS; CPT 59514; principal; 2022-08-29 07:45)
DX: O34.211 Maternal care for low transverse scar from previous cesarean delivery (principal); Z3A.39 39 weeks gestation of pregnancy; Z37.0 Single live birth
CPT/HCPCS: 36415; 59050; 59510; 59514; 85014; 85018; 85025; 86850; 86900; 86901; J0131; J0690; J1200; J1885; J2274; J2405; J2590; J2704

== ENCOUNTER 2022-09-03 08:05 | Emergency (ER) | payer OTHER, SELFPAY ==
[2022-09-03 08:08] VITALS: BP 142/96; PULSE 119; RESP 18; TEMP 36.2; O2SAT 98; BMI 31.1
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
== END 2022-09-03 08:29 | disposition home or self-care (01) ==
PROVIDERS: Emergency Provider Emergency Medicine
DX: K64.8 Other hemorrhoids (principal)
CPT/HCPCS: 99281

== ENCOUNTER → 2022-09-16 13:52 | Outpatient (CLI) | payer OTHER, SELFPAY ==
[2022-09-16 14:44] LABS: Prolactin 136.5 ng/mL (3.0-18.6)
[2022-09-16 14:44] LABS: Prolactin 85.9 ng/mL (3.0-18.6)
== END ==
PROVIDERS: Visit Provider Family Medicine
DX: O92.4 Hypogalactia (principal)
CPT/HCPCS: 84146

== ENCOUNTER → 2023-01-10 11:26 | Outpatient (CLI) | payer OTHER, SELFPAY ==
--- NOTE | 2023-01-10 11:27 | DI.RAD.S_ITS ---
PROCEDURE: XR CHEST 2V INDICATIONS: cough x 2 weeks w/ congestion/wheezing TECHNIQUE: 2 views of the chest were acquired. COMPARISON: None. FINDINGS: Surgical changes and devices: None. Lungs and pleura: Lungs are clear. No pleural effusions or pneumothorax. Mediastinum: Mediastinal contours are normal. Heart size is normal. Bones and chest wall: No suspicious bony abnormalities. Soft tissues appear unremarkable. IMPRESSION: No acute cardiopulmonary abnormality is seen. Approved by: Avinash Arroyo M.D. on 01/10/2023 at 19:04
== END ==
PROVIDERS: Referring Provider Physician Assistant; Visit Provider Physician Assistant
DX: J06.9 Acute upper respiratory infection, unspecified (principal)
CPT/HCPCS: 71046

== ENCOUNTER → 2023-07-18 09:26 | Outpatient (CLI) | payer OTHER, SELFPAY ==
[2023-07-18 10:42] LABS: Add Manual Diff / Slide Review NO; Basophils Absolute Auto 0 /uL (0-100); Basophils Percent Auto 0.2 % (0-2); Eosinophils Absolute Auto 100 /uL (0-450); Eosinophils Percent Auto 2.3 % (2-4); Hematocrit 38.1 % (36-46); Lymphocytes Absolute Auto 1100 /uL (1100-4500); Lymphocytes Percent Auto 18.2 % (25-40); Mean Corpuscular HGB Conc 34.1 % (30-36); Monocytes Absolute Auto 300 /uL (0-900); Monocytes Percent Auto 5.6 % (3-14); Neutrophils Absolute Auto 4500 /uL (1500-7000); Neutrophils Percent Auto 73.7 % (50-75); Platelet Count 192 X10^3/uL (150-400); Red Blood Cell Count 4.49 X10^6/uL (4.0-5.2); White Blood Cell Count 6.2 X10^3/uL (4.5-11.0)
[2023-07-18 12:02] LABS: Hepatitis B Surface Antigen NEGATIVE s/c (NEGATIVE); Rubella Antibody IgG 62.8 IU/mL (>15)
[2023-07-18 12:17] LABS: HIV 1 & 2 Ab/Ag 4th Gen Combo NEGATIVE (NEGATIVE); Hep C Virus Ab w/Reflex Quant NEGATIVE s/c (NEGATIVE)
[2023-07-20 05:14] LABS: RPR Screen Non Reactive (Non Reactive)
[2023-07-20 08:40] LABS: Varicella IgG Antibody 1676 index (Immune >165)
== END ==
LOC: LAB 09:28
PROVIDERS: Referring Provider Obstetrics & Gynecology; Visit Provider Obstetrics & Gynecology
DX: O09.521 Supervision of elderly multigravida, first trimester (principal)
CPT/HCPCS: 36415; 80055; 86787; 86803; 86850; 86900; 86901; 87086; 87389

== ENCOUNTER → 2023-07-31 13:51 | Outpatient (CLI) | payer OTHER, SELFPAY ==
--- NOTE | 2023-07-31 13:54 | DI.US.S_ITS ---
PROCEDURE: US OB <= 14 WEEKS FETUS INDICATIONS: Bleeding OB OUTSIDE/PRIOR DATING DATA: Last menstrual period (LMP): 05/08/2023. LMP-based estimated date of delivery (SIDDHARTH): 02/12/2024. First dating scan (date and location): 07/07/2023. Estimated date of delivery (SIDDHARTH) from first dating scan: 02/12/2024. The calculations are made using the working SIDDHARTH of 02/12/2024. TECHNIQUE: Real-time scanning was performed of the fetus and maternal pelvic organs, with image documentation. Endovaginal scanning was also performed to better visualize the fetus and maternal ovaries. COMPARISON: [facility], US, OB <= 14 WEEKS FETUS, 07/07/2023, 8:42. FINDINGS: Embryo: [place]-rump length 6.1 cm corresponds with a 12 week 4 day gestation Heart rate: 159 beats per minute Maternal organs: . The cervix measures 3.8 cm in length. Nonspecific increased vascularity noted at the internal os. No evidence of subchorionic bleed IMPRESSION: Single live intrauterine corresponds with a 12 week 4 day gestation. No evidence of subchorionic bleed Approved by: Avinash Arroyo M.D. on 07/31/2023 at 17:02
== END ==
PROVIDERS: Referring Provider Obstetrics & Gynecology; Visit Provider Obstetrics & Gynecology
DX: O20.9 Hemorrhage in early pregnancy, unspecified (principal); Z3A.12 12 weeks gestation of pregnancy
CPT/HCPCS: 76801; 76817

== ENCOUNTER → 2023-09-11 15:01 | Outpatient (CLI) | payer OTHER, SELFPAY | PROVIDERS: Referring Provider Obstetrics & Gynecology; Visit Provider Obstetrics & Gynecology | DX: Z34.82 Encounter for supervision of other normal pregnancy, second trimester (principal); Z3A.18 18 weeks gestation of pregnancy | CPT/HCPCS: 36415; 82105 ==

== ENCOUNTER → 2023-09-25 09:14 | Outpatient (CLI) | payer OTHER, SELFPAY ==
--- NOTE | 2023-09-25 09:15 | DI.US.S_ITS ---
PROCEDURE: US OB >= 14 WEEKS FETUS INDICATIONS: 20 week anatomy scan OUTSIDE/PRIOR DATING DATA: Last menstrual period (LMP): 05/08/2023. LMP-based estimated date of delivery (SIDDHARTH): 02/12/2024. First dating scan (date and location): 07/07/2023. Estimated date of delivery (SIDDHARTH) from first dating scan: 02/12/2024. The calculations are made using the clinical SIDDHARTH of 02/12/2024. TECHNIQUE: Real-time scanning was performed of the fetus, with image documentation and biometric measurements. Endovaginal scanning: Not performed COMPARISON: [facility], , OB <= 14 WEEKS FETUS, 07/31/2023, 14:13. [facility], , OB >= 14 WEEKS FETUS, 07/11/2022, 14:30. FINDINGS: General: A single living intrauterine gestation is present. Presentation: Vertex. Placenta: Placental position is posterior, without previa. Amniotic fluid index: 16.3 cm, normal range is 5-24 cm. Single deepest vertical pocket is 4.7 cm. heart rate: 153 beats per minute. Maternal cervical canal: 5.1 cm long. Normal lower limit is 2.5 cm. biometrics: Biparietal diameter: 4.6 cm, 20 weeks 0 days Head circumference: 17.3 cm, 19 weeks 6 days Abdominal circumference: 16.1 cm, 21 weeks 1 day Femur length: 3.3 cm, 20 weeks 2 days Clinically estimated gestational age: 20 weeks 0 days Composite gestational age from present scan: 20 weeks 2 days Estimated weight and percentile: 371 g, 83rd percentile Anatomic survey: Neuro: Ventricles are non-dilated at less than 10 mm. Cisterna magna is normal at 3-11 mm. Cerebellum is normal in size and morphology. Nuchal skin fold: Normal at less than 6 mm between 14-21 weeks gestational age. Face: Nose and lips, facial profile are normal. Spine: No evidence for spina bifida. Heart: 4-chambered heart is present, with normal ventricular outflow tracts. Diaphragm: Diaphragm is intact. Stomach: Left-sided stomach is present. Kidneys: No hydronephrosis. Normal is less than 5 mm in 2nd trimester, less than 7 mm in 3rd trimester. Cord: 3-vessel cord has orthotopic insertion. Bladder: Normal in size. Extremities: All 4 extremities identified. IMPRESSION: 1. Lynn living intrauterine at 20 weeks 2 days based on today's ultrasound. Fetus is in the 83rd percentile for weight. 2. Normal placenta and amniotic fluid. 3. Normal and complete anatomic survey. We strive to produce accurate, complete, and clear reports of imaging services. To assist us in improving patient care, this report was composed using standard report templates and voice recognition software. Therefore, it may contain abnormal punctuation, insertions and/or omissions. Occasional wrong-word or sound-alike substitutions may occur. Though we review the report and make efforts to correct it, we do recommend that the report be read carefully in proper context to recognize any text inaccuracies. Dictated by: Mehul Nicole M.D. on 09/25/2023 at 20:07 Approved by: Mehul Nicole M.D. on 09/25/2023 at 20:14
== END ==
LOC: US 09:15
PROVIDERS: Referring Provider Obstetrics & Gynecology; Visit Provider Obstetrics & Gynecology
DX: Z34.82 Encounter for supervision of other normal pregnancy, second trimester (principal); Z3A.20 20 weeks gestation of pregnancy
CPT/HCPCS: 76811

== ENCOUNTER → 2023-11-03 08:47 | Outpatient (CLI) | payer OTHER, SELFPAY ==
[2023-11-03 10:56] LABS: Hematocrit 35.2 % (36-46); Hemoglobin 12.1 g/dL (12.0-16.0)
[2023-11-03 11:22] LABS: GTT (PREG) 1 Hour PP 50gm Dose 91 mg/dL (76-139)
== END ==
PROVIDERS: Referring Provider Obstetrics & Gynecology; Visit Provider Obstetrics & Gynecology
DX: Z34.82 Encounter for supervision of other normal pregnancy, second trimester (principal); Z3A.26 26 weeks gestation of pregnancy
CPT/HCPCS: 36415; 82950; 85014; 85018

== ENCOUNTER 2023-12-25 07:13 | Inpatient (IN) | payer OTHER, SELFPAY ==
--- NOTE | 2023-12-25 07:28 | DI.US.S_ITS ---
PROCEDURE: US OB LIMITED INDICATIONS: 33 wk , bright red bleeding OUTSIDE/PRIOR DATING DATA: Last menstrual period (LMP): 05/08/2023. LMP-based estimated date of delivery (SIDDHARTH): 02/12/2024. First dating scan (date and location): 07/07/2023. Estimated date of delivery (SIDDHARTH) from first dating scan: 02/12/2024. TECHNIQUE: Real-time scanning was performed of the fetus, with image documentation. Endovaginal scanning: Performed COMPARISON: [facility], OB >= 14 WEEKS FETUS, 09/25/2023, 9:27. [facility], OB <= 14 WEEKS FETUS, 07/31/2023, 14:13. [facility] OB <= 14 WEEKS FETUS, 07/07/2023, 8:42. FINDINGS: A single living intrauterine gestation is present. Presentation: Vertex. Placenta: Placental position is posterior fundal, without previa. 2.1 cm, which is borderline abnormal (please note that per documentation, the cervical os was dilated at 3 cm at the time of this measurement) Amniotic fluid index: 11.3 cm, normal range is 5-24 cm. Single deepest vertical pocket is 7.1 cm. heart rate: 127 beats per minute. Maternal cervical canal: Dilated at 3 cm Estimated gestational age from initial scan: 33 weeks and 0 days. IMPRESSION: 1. Single live intrauterine gestation with an estimated gestational age of 33 weeks and heart rate of 127 beats per minute. 2. Interval reduction in cervical length to 2.1 cm and cervical os dilatation up to 3 cm, which may be indicative of a delivery in progress. Dictated by: Quincy Mora M.D. on 12/25/2023 at 8:32 Approved by: Quincy Mora M.D. on 12/25/2023 at 8:41
[2023-12-25] MEDS: LACTATED RINGERS 1,000 ML 100 ML IV ×3 (08:00→11:53)
[2023-12-25] MEDS: MAGNESIUM SULFATE 4 GM/100 ML PIGGYBACK IV (08:16)
[2023-12-25] MEDS: BETAMETHASONE 30 MG/5 ML MDV 12 MG IM (08:16)
[2023-12-25 08:45] LABS: Add Manual Diff / Slide Review NO; Basophils Absolute Auto 0 /uL (0-100); Basophils Percent Auto 0.2 % (0-2); Eosinophils Absolute Auto 100 /uL (0-450); Eosinophils Percent Auto 0.9 % (2-4); Hematocrit 38.3 % (36-46); Lymphocytes Absolute Auto 1500 /uL (1100-4500); Lymphocytes Percent Auto 15.5 % (25-40); Mean Corpuscular HGB Conc 33.9 % (30-36); Mean Corpuscular Hemoglobin 28.8 PG (26-34); Monocytes Absolute Auto 600 /uL (0-900); Monocytes Percent Auto 6.4 % (3-14); Neutrophils Absolute Auto 7500 /uL (1500-7000); Platelet Count 143 X10^3/uL (150-400); Red Blood Cell Count 4.51 X10^6/uL (4.0-5.2); Red Cell Distribution Width 13.6 % (11.6-14.8); White Blood Cell Count 9.8 X10^3/uL (4.5-11.0)
[2023-12-25] MEDS: MAGNESIUM SULFATE 20 GM/500 ML IV.SOLN IV (08:48)
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
--- NOTE | 2023-12-25 09:03 | PM.PREOP ---
Pre-operative Note Interval Note History & Physical reviewed/Exam performed by Physician: Yes Changes to H&P: No H&P completed within 30 days and has changed as indicated here:: 12/25/23
[2023-12-25 09:52] VITALS: BP 113/69
[2023-12-25] MEDS: ACETAMINOPHEN IV 1,000 MG/100 ML VIAL 400 MG IV (11:30)
--- NOTE | 2023-12-25 11:36 | SUR.OPER ---
pre incision FHT 129, viable baby born at 1137, clear amniotic fluid
[2023-12-25] MEDS: CEFAZOLIN 2 GM/100 ML PREMIX 100 ML IV (11:45)
[2023-12-25 12:30] VITALS: BP 96/65; PULSE 71; RESP 18; TEMP 36.9; O2SAT 100
[2023-12-25 12:35] VITALS: BP 97/59; PULSE 70; RESP 14; O2SAT 100
[2023-12-25 12:40] VITALS: BP 97/57; PULSE 73; RESP 14; O2SAT 98
[2023-12-25 12:45] VITALS: BP 94/61; PULSE 73; RESP 14; TEMP 36.6; O2SAT 100
--- NOTE | 2023-12-25 12:52 | PM.OBCS.1 ---
Operative Date/Time/Diagnoses Date of procedure: 12/25/23 Time of procedure: 12:52 Pre-op diagnosis: Thirty-three weeks' gestation labor Previous section x2 Post-op diagnosis: same Procedure & Clinicians Procedure: Repeat low-transverse section Scar revision Same procedure as scheduled: Yes Indications: Patient is a 38-year-old 3 para 2 who presented to labor and delivery with labor. Despite magnesium sulfate she had cervical change. Decision was made to proceed with repeat section here[facility] Surgeon: Sarah Nielsen Click Yes if Unassisted: No Post Doctoral Fellow: Marilou Noonan Reason for Post Doctoral Fellow: The assistant surveyor was necessary to retract upon entry into the abdomen and uterus. She assisted with delivery of the with fundal pressure. She assisted with closure with retraction, clipping of suture, and closure of the contralateral fascia. Anesthesia Type: Spinal (With Duramorph) Operative Notes Findings: Live male infant in the BRIANNA presentation Normal uterus, tubes and ovaries Closure Type: primary Specimen(s): cord blood and placenta Intraoperative meds administered: Acetaminophen, Duramorph, Ketorolac and Pitocin Applied: Catheter (To continuous drainage) Estimated Blood Loss (mL): 600 Blood products transfused: none Procedure in detail: The patient was taken to the operating room where she was placed in the seated position. Spinal anesthesia with Duramorph was administered. The patient was then placed in the dorsal supine position with a leftward tilt. She was prepped and draped in the usual sterile fashion. A timeout was performed. After spinal analgesia was found to be adequate, The previous 2 scars were excised in an elliptical fashion. The incision was then carried through to the underlying layer fascia. The fascia was nicked in the midline, and the incision extended bilaterally with the Marrero scissors. The superior aspect of the fascial incision was grasped with a [place] clamps, elevated, and the underlying rectus muscles dissected off sharply and bluntly. Attention was then turned to the inferior aspect of this incision which in a similar fashion was grasped with a [place] clamps, elevated, and the underlying rectus muscles dissected off sharply and bluntly. The rectus muscles were in the midline. The peritoneum was identified, grasped between 2 hemostats, and entered sharply with the Metzenbaum scissors. This incision was extended superiorly and inferiorly with good visualization of the bladder. The bladder blade was inserted. The vesicouterine peritoneum was identified, grasped with the pickup, and entered sharply with the Metzenbaum scissors. This incision was extended bilaterally, and the bladder flap was created digitally. The bladder blade was reinserted. The lower uterine segment was incised in a transverse fashion with the scalpel. Upon entering the amniotic sac there was moderate amount of clear amniotic fluid. The 's head was delivered without difficulty. The nose and mouth were suctioned with bulb suction. The remainder of the body delivered without difficulty. The infant was wrapped in warm blankets. The cord was double clamped and cut after 30 seconds. The infant was handed off to waiting RN, RT and Pediatric team. Pitocin was given in the IVF's. The placenta was delivered by expression. The uterus was cleared of all clots and debris. The uterine incision was repaired with #1 chromic in a running interlocking fashion, and a second layer the same suture was used for an imbricating layer. Hemostasis was achieved. The tubes and ovaries were examined and were found to be normal. The gutters were cleared of all clots and debris. The bladder flap was reapproximated using 2-0 Vicryl in a running fashion. The parietal peritoneum was closed using 2-0 Vicryl in a running fashion. The fascia was reapproximated using 0 Vicryl in a running fashion. The subcutaneous layer was copiously irrigated with warm normal saline. 5 simple interrupted sutures of 3-0 Vicryl were placed to reapproximate the subcutaneous layer. The skin was closed with 4-0 Monocryl in a subcuticular fashion. Steri-Strips were placed. An Aquacel dressing was placed. The uterus was expressed of a small amount of old blood. Sponge, lap, and instrument counts were correct x-2. The patient tolerated the procedure well, and was taken to PACU in stable condition. Complications: none [place] Baby 1: Gender: Male Presentation: vertex Position: Left Occiput Anterior Placental Delivery Description: Expressed Cord Vessel Description: 3 Vessels and Clamped/Cut (after 30 sec) score (1 min): 8 score (5 min): 8 weight: 5 lb 1.4 oz Post-operative Condition: stable Disposition: PACU Aftercare: routine postop
[2023-12-25 14:32] VITALS: TEMP 35.9
[2023-12-25] MEDS: OXYCODONE IR 5 MG TABLET PO ×2 (14:32→15:34)
[2023-12-25] MEDS: LANOLIN OINT 7 GM 1 APPLIC TOP (14:32)
[2023-12-25] MEDS: ONDANSETRON 4 MG/2 ML INJ IV (14:53)
[2023-12-25] MEDS: diphenhydrAMINE 50 MG/ML VIAL 25 MG IV ×2 (15:31→19:57)
[2023-12-25] MEDS: ACETAMINOPHEN 325 MG TABLET 650 MG PO (17:46)
[2023-12-25] MEDS: polyethylene glycoL 3350 17 GM POWD.PACK PO (17:47)
[2023-12-25] MEDS: KETOROLAC 30 MG/ML VIAL IV (18:43)
[2023-12-25] MEDS: OXYCODONE IR 10 MG TABLET PO (19:57)
[2023-12-26] MEDS: KETOROLAC 30 MG/ML VIAL IV (00:32)
[2023-12-26] MEDS: OXYCODONE IR 10 MG TABLET PO (00:32)
[2023-12-26] MEDS: ACETAMINOPHEN 325 MG TABLET 650 MG PO ×2 (03:03→09:17)
[2023-12-26] MEDS: OXYCODONE IR 5 MG TABLET PO (06:08)
[2023-12-26] MEDS: IBUPROFEN 600 MG TABLET PO ×2 (06:11→12:13)
[2023-12-26 06:13] LABS: Add Manual Diff / Slide Review NO; Basophils Absolute Auto 0 /uL (0-100); Basophils Percent Auto 0.1 % (0-2); Eosinophils Absolute Auto 0 /uL (0-450); Hematocrit 36.1 % (36-46); Lymphocytes Absolute Auto 1000 /uL (1100-4500); Lymphocytes Percent Auto 5.6 % (25-40); Mean Corpuscular HGB Conc 33.3 % (30-36); Mean Corpuscular Hemoglobin 28.6 PG (26-34); Mean Corpuscular Volume 85.8 fL (80-100); Monocytes Absolute Auto 1000 /uL (0-900); Monocytes Percent Auto 5.1 % (3-14); Neutrophils Absolute Auto 16800 /uL (1500-7000); Neutrophils Percent Auto 89.2 % (50-75); Platelet Count 156 X10^3/uL (150-400); Red Cell Distribution Width 13.2 % (11.6-14.8); White Blood Cell Count 18.8 X10^3/uL (4.5-11.0)
[2023-12-26] MEDS: DOCUSATE 100 MG CAPSULE PO (09:17)
[2023-12-26] MEDS: polyethylene glycoL 3350 17 GM POWD.PACK PO (09:17)
[2023-12-26] MEDS: PRENATAL VIT,CALC/IRON/FOLIC 1 TABLET 1 TAB PO (09:17)
[2023-12-26 10:20] VITALS: BP 94/61; PULSE 73; RESP 14; TEMP 35.9
--- NOTE | 2023-12-26 12:11 | PM.OBDS.1 ---
Discharge Providers Provider Date of admission: 12/25/23 07:13 Discharge Date: 12/26/23 Consults: 12/25/23 13:04 Consult to Telephone Claims Representative Routine Comment: Discharge provider: Zoila Rose DO Summary Hospital Course Date Patient Seen: 12/26/23 Time Patient Seen: 12:11 Diagnoses: gestation at 33wks labor History of prior section Hospital Course: 38yo at 33+0wks presented in labor. She progressed from 3cm to 4cm over several hours, thus she was counseled and consented for repeat delivery. Her delivery was uncomplicated and productive of a viable male infant with APGARs 8/8. Her baby was transferred to the NICU. Her course was uncomplicated. By post-op day #1, she was ambulating, tolerating regular diet, voiding spontaneously, with minimal lochia. Thus on post-op day #1, she was discharged to home. Peripartum Data Delivery Method: Section Procedures: External monitoring delivery Neuraxial anesthesia complications: none Discharge Diagnosis (1) delivery delivered: Status: Acute (2) labor in third trimester with delivery: Status: Acute Status at Discharge Cognitive/behavioral status at discharge: oriented Functional status at discharge: independent ambulation Overall status at discharge: patient is progressing back to baseline Time Spent with Patient Time attestation: Total time spent providing and/or coordinating discharge services: Time spent: Less than 30 minutes Objective Labs 12/26/23 06:02 Labs: Laboratory Results - last 24 hr 12/26/23 06:02 WBC 18.8 H D RBC 4.20 Hgb 12.0 Hct 36.1 MCV 85.8 MCH 28.6 MCHC 33.3 RDW 13.2 Plt Count 156 Neut % (Auto) 89.2 H Lymph % (Auto) 5.6 L [place] % (Auto) 5.1 Eos % (Auto) 0.0 L Baso % (Auto) 0.1 Neut # (Auto) 60226 H Lymph # (Auto) 1000 L [place] # (Auto) 1000 H Eos # (Auto) 0 Baso # (Auto) 0 Exam Vital Signs (past 8 hours): - 12/26/23 10:20 Temperature 96.6 F L Pulse Rate 73 Respiratory Rate 14 Blood Pressure 94/61 Oxygen Delivery Method Room Air reviewed in OBIX, within normal parameters Const General: cooperative, healthy appearing, comfortable and No acute distress Resp Effort & Inspection: normal respiratory effort GI Inspection: normal to inspection Other: fundus firm and nontender at U-2 Skin General: no rashes or lesions noted Other: low transverse incision covered with Aquacel dressing, no strikethrough noted Neuro General: patient alert and patient awake Extrem General: normal to inspection, no pedal edema and no calf tenderness Psych Mood: congruent mood Affect: normal affect Discharge Plan Discharge Plan Patient Disposition: Home Provider Discharge Comment: Take ibuprofen 800 mg every 8 hours, and acetaminophen 650 mg every 6 hours as needed for pain. Use oxycodone 5 mg every 4 hours as needed for breakthrough pain. Avoid lifting greater than 20 lb for at least 6 weeks. Avoid placing anything in the vagina for 6 weeks. Discharge orders & Medications Prescriptions: New oxycodone 5 mg Tablet 5 mg PO Q4H PRN (Reason: Pain, Moderate (4-6)) Qty: 14 0RF Continued prenat.vits,harrison,[id number] Tablet 1 tab PO DAILY Discontinued RSVPreF3 antigen-AS01E (PF) 120 mcg/0.5 mL suspension for reconstitution 0.5 ml IM ONCE Qty: 1 0RF Follow up/Referrals: Sarah Nielsen MD [Physician] - (Please follow up for your 1 week incision check on monday01/03/24 @9:15am. Check in @9:00am! Also please follow up for your 6 week checkup appointment on 02/01/24 @10:00am! Check in @9:45am!) Diet/Activity/Treatments Diet: Diet as Tolerated Activity: As tolerated Skin/Wound/Dressing Care Report to your healthcare provider any signs of infection, such as:: chills, fever, increased pain, unusual drainage and unusual redness Dressing: You may shower with the Aquacel dressing in place. Visit Report/Discharge Packet Instructions: DI for , DI for Prescription Opioid Use Stand Alone Forms: Discharge: Care, Discharge: [facility], Patient Portal/API
== END 2023-12-26 13:50 | disposition home or self-care (01) | DRG 788 ==
PROVIDERS: Admitting Provider Obstetrics & Gynecology; Referring Provider Obstetrics & Gynecology; Visit Provider Obstetrics & Gynecology
PROC: 10D00Z1 Extraction of Products of Conception, Low, Open Approach (ICD-10-PCS; CPT 59514; principal; 2023-12-25 09:45)
DX: O60.14X0 Preterm labor third trimester with preterm delivery third trimester, not applicable or unspecified (principal); Z3A.33 33 weeks gestation of pregnancy; Z37.0 Single live birth
CPT/HCPCS: 36415; 59050; 59400; 76815; 76817; 85025; 86850; 86900; 86901; G0379; J0134; J0690; J0702; J1100; J1200; J1885; J2274; J2405; J3475

== ENCOUNTER 2024-02-23 09:24 | Emergency (ER) | payer OTHER, SELFPAY ==
[2024-02-23] VITALS (7 sets, daily range): BP systolic 107–124; BP diastolic 67–86; PULSE 72–87; RESP 11–26; TEMP 36.8; O2SAT 97–100; BMI 27.1
--- NOTE | 2024-02-23 09:26 | PC.NURSE ---
Pt in the bathroom when I went to lobby to get her for triage.
--- NOTE | 2024-02-23 09:33 | DI.RAD.S_ITS ---
PROCEDURE: XR CHEST 1V INDICATIONS: chest pain TECHNIQUE: One view of the chest was acquired. COMPARISON: [facility], CR, XR CHEST 2V, 01/10/2023, 12:29. FINDINGS: Surgical changes and devices: None. Lungs and pleura: No dense airspace disease. No pleural effusions Mediastinum: Heart size is normal and unchanged Bones and chest wall: Unremarkable IMPRESSION: Single view radiograph without acute abnormality. Dictated by: Natanael Cline M.D. on 02/23/2024 at 9:54 Approved by: Natanael Cline M.D. on 02/23/2024 at 9:54
[2024-02-23] MEDS: ASPIRIN 81 MG CHEW TAB 324 MG PO (09:37)
--- NOTE | 2024-02-23 09:39 | EKG_ITS ---
[address] [id number] [address], [place] [address] Test Date: 2024-02-23 Pat Name: Charla Rowley Department: Room: Gender: Female [employer] Maker: KYLIE : 1985 Requested By: Order Number: [id number] Reading MD: Pardeep Sharif MD Measurements Intervals [place] Rate: 80 P: 46 CA: 192 QRS: 16 QRSD: 92 T: 18 QT: 388 QTc: 447 Interpretive Statements Normal sinus rhythm with sinus arrhythmia Electronically Signed On 02-23-2024 12:04:04 PST by Pardeep Sharif MD
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
--- NOTE | 2024-02-23 10:07 | DI.US.S_ITS ---
PROCEDURE: US ABDOMEN LIMITED INDICATIONS: RUQ pain. ? Gallstones. 2months TECHNIQUE: Real-time focused scanning was performed of the abdomen, with image documentation. COMPARISON: [facility], , US ABDOMEN COMPLETE, 09/08/2017, 14:22. FINDINGS: Liver measures 16 cm. There is a single 0.7 cm gallstone. No sonographic Barnett sign. CBD measures 4 mm. Unremarkable pancreas. IMPRESSION: Cholelithiasis without sonographic Barnett sign. Dictated by: Natanael Cline M.D. on 02/23/2024 at 11:14 Approved by: Natanael Cline M.D. on 02/23/2024 at 11:14
[2024-02-23 10:22] LABS: Add Manual Diff / Slide Review NO; Basophils Absolute Auto 0 /uL (0-100); Basophils Percent Auto 0.3 % (0-2); Eosinophils Absolute Auto 100 /uL (0-450); Eosinophils Percent Auto 2.8 % (2-4); Hematocrit 37.4 % (36-46); Hemoglobin 12.6 g/dL (12.0-16.0); Lymphocytes Absolute Auto 1500 /uL (1100-4500); Lymphocytes Percent Auto 36.6 % (25-40); Mean Corpuscular HGB Conc 33.6 % (30-36); Mean Corpuscular Hemoglobin 28.1 PG (26-34); Mean Corpuscular Volume 83.8 fL (80-100); Monocytes Absolute Auto 300 /uL (0-900); Monocytes Percent Auto 6.1 % (3-14); Neutrophils Absolute Auto 2300 /uL (1500-7000); Neutrophils Percent Auto 54.2 % (50-75); Platelet Count 192 X10^3/uL (150-400); Red Blood Cell Count 4.46 X10^6/uL (4.0-5.2); Red Cell Distribution Width 13.8 % (11.6-14.8); White Blood Cell Count 4.2 X10^3/uL (4.5-11.0)
[2024-02-23 10:30] LABS: INR 0.9 (0.9-1.3); Prothrombin Time 10.6 SECONDS (9.4-12.5)
[2024-02-23 10:33] LABS: PTT Partial Thromboplastin Tim 33 SECONDS (25.1-36.5)
[2024-02-23 10:36] LABS: Alanine Aminotransferase 31 IU/L (<35); Albumin 3.9 g/dL (3.5-5.0); Albumin Globulin Ratio 1.4 (1.0-2.8); Alkaline Phosphatase 67 U/L (38-126); Aspartate Aminotransferase 31 IU/L (14-36); BUN Creatinine Ratio 15.7 (6-22); Bilirubin Total 0.4 mg/dL (0.2-1.3); Blood Urea Nitrogen 11 mg/dL (7-17); Calcium 8.7 mg/dL (8.4-10.2); Carbon Dioxide 30 mmol/L (22-32); Chloride 106 mmol/L (98-107); Creatine Kinase 101 U/L (30-135); Estimated Glomerular Filt Rate > 60 mL/min (>60); Globulin 2.8 g/dL (1.7-4.1); Glucose 94 mg/dL (70-100); HEMOLYSIS 15 (0-50); Lipase 91 U/L (23-300); Magnesium 1.5 mg/dL (1.6-2.3); Potassium 3.6 mmol/L (3.4-5.1); Sodium 140 mmol/L (137-145); Total Protein 6.7 g/dL (6.3-8.2)
[2024-02-23 10:48] LABS: NT-proBNP (BNP-Adult 18+) 157 pg/mL (<125); Troponin I < 0.012 ng/mL (0.01-0.034)
== END 2024-02-23 11:50 | disposition home or self-care (01) ==
PROVIDERS: Emergency Provider Emergency Medicine
DX: K80.20 Calculus of gallbladder without cholecystitis without obstruction (principal); I49.8 Other specified cardiac arrhythmias; R07.9 Chest pain, unspecified
CPT/HCPCS: 36415; 71045; 76705; 80053; 82550; 83690; 83735; 83880; 84484; 85025; 85610; 85730; 93005; 93010; 99284

== ENCOUNTER 2024-04-12 11:04 | Day surgery (SDC) | payer OTHER, SELFPAY ==
[2024-03-29 14:39] VITALS: BMI 31.1
[2024-04-12] VITALS (7 sets, daily range): BP systolic 115–125; BP diastolic 66–80; PULSE 70–95; RESP 10–22; TEMP 36.2–36.6; O2SAT 96–100; BMI 31.1
--- NOTE | 2024-04-12 | PATH_ITS ---
[facility] Accession Number: [id number] No. of containers..01 Tissue . 01 Material submitted: . gallbladder - GALLBLADDER . 01 Diagnosis: GALLBLADDER, CHOLECYSTECTOMY: Cholelithiasis with cholesterolosis. No evidence of neoplasm. MRV 04/16/2024 1342 Local . 01 Electronically signed: . Pollo Smith MD, PhD, Pathologist NPI- [id number] . 01 Gross description: . Received in formalin, labeled with two identifiers and gallbladder, is an intact gallbladder measuring 9.5 x 3.2 x 2.9 cm with an unremarkable external surface. The cystic duct margin is inked blue. No pericystic lymph node is identified. The lumen contains a green roughened calculus measuring 0.9 cm in greatest dimension admixed with dark green viscous bile. The mucosa is green and velvety with yellow areas of discoloration and no polyps or lesions identified. The lieberman average 0.2 cm thick. Gun Examiner sections to include the cystic duct margin and full-thickness sections are submitted in cassette A1. ([id number]) /FRR 04/13/2024 1017 Local . 01 Pathologist provided ICD-10: K80.70 . 01 CPT . 981854 Specimen Comment: A courtesy copy of this report has been sent to [facility] Performed at: [address] [address], [place], [place] [id number] MD Fantasma Orourke MD Phone: [phone]
--- NOTE | 2024-04-12 | DI.RAD.S_ITS ---
PROCEDURE: XR CHOLANGIOGRAM OPERATIVE INDICATIONS: CHOLANGIOGRAM COMPARISON: [facility], , US ABDOMEN LIMITED, 02/23/2024, 10:47. FINDINGS: Biliary ducts: The surgeon injected contrast into the biliary ducts after cannulation of the cystic duct stump. Visualized intra- and extrahepatic bile ducts are normal in caliber, without strictures. No intraluminal filling defects to suggest retained ductal stones or sludge. No evidence for iatrogenic ductal injury. Duodenum: Contrast flows promptly through the sphincter of Oddi into the duodenum, which appears normal in caliber. IMPRESSION: Intraoperative cholangiogram demonstrating no dilation or filling defects. Dictated by: Dona Bowen M.D. on 04/12/2024 at 16:18 Approved by: Dona Bowen M.D. on 04/12/2024 at 16:18
[2024-04-12] MEDS: FAMOTIDINE 20 MG/2 ML VIAL IV (11:19)
[2024-04-12] MEDS: SCOPOLAMINE 1 PATCH TOP (11:19)
[2024-04-12] MEDS: LACTATED RINGERS 1,000 ML 42 ML IV ×2 (11:19→13:40)
[2024-04-12] MEDS: ACETAMINOPHEN 325 MG TABLET 975 MG PO (11:20)
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
[2024-04-12] MEDS: CEFAZOLIN 2 GM/100 ML PREMIX 100 ML IV (13:19)
--- NOTE | 2024-04-12 13:33 | SUR.OPER ---
Supine on padded OR bed, head on pillow, safety belt at thigh, bilateral arm secured on padded arm board <90 degrees abduction. Legs uncrossed. Padded footboard in place. Tape over blanket to secure lower legs.
[2024-04-12] MEDS: BUPIVACAINE 0.5% W/ EPI (PF) 30 ML VIAL INJ (13:38)
[2024-04-12] MEDS: iopamidoL 30 ML VIAL INJ (13:39)
[2024-04-12] MEDS: KETOROLAC 30 MG/ML VIAL 15 MG IV (14:12)
[2024-04-12] MEDS: ACETAMINOPHEN IV 1,000 MG/100 ML VIAL 400 MG IV (14:14)
--- NOTE | 2024-04-12 14:31 | PM.OP.1 ---
Operative Date/Time/Diagnoses Date of procedure: 04/12/24 Time of procedure: 14:31 Pre-op diagnosis: Symptomatic cholelithiasis Post-op diagnosis: same Procedure & Clinicians Procedure: Laparoscopic cholecystectomy with cholangiography Same procedure as scheduled: Yes Indications: Symptomatic cholelithiasis Surgeon: Tres Maher Click Yes if Unassisted: Yes Anesthesia Type: General Operative Notes Findings: Normal cholangiogram Closure Type: primary Specimen(s): other (Gallbladder and contents) Estimated Blood Loss (mL): 5 Procedure in detail: Consent was obtained. Patient was brought into the operating room suite. Patient was placed in the supine position with the arms out. General anesthesia was induced. Time-out was performed. The abdomen was prepped and draped in the usual fashion. Total of 30 mL of 0.5% Marcaine were infiltrated in all trocar sites. 5 mm optical trocar was placed in the left upper quadrant. Pneumoperitoneum was achieved. The abdomen was inspected. Abnormalities noted included adhesions to the gallbladder. 11 mm trocar placed in the umbilicus. Two additional 5 mm trocars were placed in the right upper quadrant. The gallbladder was grasped, retracted laterally and cephalad. The medial and lateral attachments of the gallbladder were opened revealing a critical view of the single cystic duct and single cystic artery. The artery was doubly clipped and divided. The duct was clipped at the junction of the infundibulum. A cystic ductotomy was made through which a cholangiogram was performed. Cholangiogram showed prompt emptying into the duodenal with bilateral intrahepatic ductal filling and no evidence of strictures or stones. Thus completed the cholangiography and the catheter was removed. Three clips were then applied to the cystic duct stump. Bovie electrocautery was used to remove the gallbladder from the liver bed. Hemostasis was achieved. The gallbladder was placed in an endo-pouch and brought out through the umbilical trocar. The umbilical trocar was closed with an 0 Vicryl on a Elliott-Anjel suture Passer. Pneumoperitoneum was relieved. Skin was closed with 4-0 Monocryl and Dermabond. Patient tolerated procedure well was transferred to PACU in stable condition for anticipated same-day discharge. Post-operative Condition: stable Disposition: PACU Plan for aftercare: home
[2024-04-12] MEDS: OXYCODONE IR 5 MG TABLET PO ×2 (14:36→15:11)
== END 2024-04-12 15:17 | disposition home or self-care (01) ==
PROVIDERS: Referring Provider Surgery; Visit Provider Surgery
PROC: 0FT44ZZ Resection of Gallbladder, Percutaneous Endoscopic Approach (ICD-10-PCS; CPT 47563; principal; 2024-04-12 12:15)
DX: K80.20 Calculus of gallbladder without cholecystitis without obstruction (principal)
CPT/HCPCS: 47563; 74300; 81025; J0134; J0690; J1100; J1171; J1885; J2250; J2405; J2704; J3010; J3490; Q9967